=== PATIENT | male | born 1965 | race African-American/Black ===

== ENCOUNTER 2016-11-19 21:31 | Emergency (ER) | payer MEDICARE, MEDICAID ==
[~2016-11-19] VITALS: Ht 188 cm; Wt 88.0 kg
[~2016-11-19 21:31] MED LIST: DILANTIN; HYDROCODONE; QUET400T; SOMA
[2016-11-19] MEDS ORDERED: HYDROCODONE/ACETAMINOPHEN 10/325MG TABLET PO ONE (22:45)
[2016-11-20 01:05] VITALS: BP 139/83
== END 2016-11-20 01:44 | disposition home or self-care (01) ==
LOC: ER 21:31
DX: S82.55XA Nondisplaced fracture of medial malleolus of left tibia, initial encounter for closed fracture (principal); G40.909 Epilepsy, unspecified, not intractable, without status epilepticus; M54.30 Sciatica, unspecified side; G47.00 Insomnia, unspecified; Z90.2 Acquired absence of lung [part of]; V03.10XA Pedestrian on foot injured in collision with car, pick-up truck or van in traffic accident, initial encounter; Y93.89 Activity, other specified; Y92.488 Other paved roadways as the place of occurrence of the external cause
CPT/HCPCS: 29515; 73630; 99284